=== PATIENT | male | born 1995 | race African-American/Black ===

== ENCOUNTER 2022-10-14 12:27 | Day surgery (SDC) | payer BC ==
[2022-10-11 14:08] VITALS: BMI 31.7
[2022-10-14 13:59] VITALS: RESP 18; TEMP 97.7
[2022-10-14 14:11] VITALS: BP 112/78; PULSE 92
== END 2022-10-14 14:25 | disposition home or self-care (01) ==
LOC: FASU-ENDO 12:27
PROVIDERS: ATTEND Internal Medicine Gastroenterology
PROC: 0DB78ZX Excision of Stomach, Pylorus, Via Natural or Artificial Opening Endoscopic, Diagnostic (ICD-10-PCS; 2022-10-14)
PROC: 0DB48ZX Excision of Esophagogastric Junction, Via Natural or Artificial Opening Endoscopic, Diagnostic (ICD-10-PCS; 2022-10-14)
PROC: 0DB98ZX Excision of Duodenum, Via Natural or Artificial Opening Endoscopic, Diagnostic (ICD-10-PCS; principal; 2022-10-14 13:37)
DX: K29.50 Unspecified chronic gastritis without bleeding (principal)
CPT/HCPCS: 88305-TC; 88342-TC